=== PATIENT | male | born 1995 | race Caucasian/White ===

== ENCOUNTER 2018-08-22 14:17 | Emergency (ER) | payer MEDICAID ==
[2018-08-22 14:35] VITALS: BP 134/73; PULSE 76; TEMP 97.3; O2SAT 95
[2018-08-22] MEDS ORDERED: Albuterol-Ipratrop 3 mg / 0.5 (3 ml) UD IH STA (14:50)
--- NOTE | 2018-08-22 14:51 | C.PDOC ---
History Of Present Illness ASTHMA EXAC X SEV DAYS. PS W INCREASED WHEEZING X SEV MONTHS, USING [facility] "MULTIPLE TIMES" DAILY "SOME DAYS WORSE THAN OTHERS". RAN OUT OF [facility]. PS COMPLETED "1 MONTH OF STEROID" FINISHED 3 WKS AGO. NO FEVER, STARKS. EXAM NARD NONTOXIC LUNGS B/L EXP WHEEZE SPEAKING FULL SENTENCES NO RETRACTION CV RR REMAINDER NEG MDM ASTHMA EXAC. PT STRONGLY ADVISED NEED FOR INTERMEDIATE MAINTENANCE THERAPY, PMD EVAL POSSIBLE PHOTOCOPY OPERATOR. PT AND FUAD VOICE UNDERSTANDING Time Seen by Provider: 08/22/18 14:36 Chief Complaint (Nursing): Shortness Of Breath History Per: Patient History/Exam Limitations: no limitations Onset/Duration Of Symptoms: Days Current Symptoms Are (Timing): Still Present Severity: Moderate Past Medical History Reviewed: Historical Data, Nursing Documentation, Vital Signs Vital Signs: Last Vital Signs Temp 97.3 F L 08/22/18 14:20 Pulse 76 08/22/18 14:20 Resp 20 08/22/18 14:20 BP 134/73 08/22/18 14:20 Pulse Ox 95 08/22/18 14:20 Primary Care Provider: FAMILY PROVIDER,NO - Medical History PMH: Asthma Surgical History: No Surg Hx Family History: States: No Known Family Hx - Social History Hx Alcohol Use: Yes Hx Substance Use: No - Immunization History Hx Tetanus Toxoid Vaccination: No Hx Influenza Vaccination: No Hx Pneumococcal Vaccination: No Review Of Systems Except As Marked, All Systems Reviewed And Found Negative. Constitutional: Negative for: Fever, Chills Cardiovascular: Negative for: Chest Pain Respiratory: Positive for: Shortness of Breath, Wheezing Physical Exam - Physical Exam Appears: Non-toxic, Other (NARD) Skin: Normal Color, Warm, Dry Head: Atraumatic, Normacephalic Eye(s): bilateral: Normal Inspection Ear(s): Bilateral: Normal Neck: Supple Chest: Symmetrical Cardiovascular: Rhythm Regular Respiratory: No Rales, No Rhonchi, Wheezing (bilateral expiratory wheezing), Other (pt is speaking in full sentences, no retractions) Neurological/Psych: Oriented x3, Normal Speech ED Course And Treatment O2 Sat by Pulse Oximetry: 95 (RA) Pulse Ox Interpretation: Normal Medical Decision Making Medical Decision Making: Plan: --Duoneb --Prednisone PO ASTHMA EXAC. PT STRONGLY ADVISED NEED FOR INTERMEDIATE MAINTENANCE THERAPY, PMD EVAL POSSIBLE PHOTOCOPY OPERATOR. PT AND FUAD VOICE UNDERSTANDING Disposition Counseled Patient/Family Regarding: Diagnosis, Need For Followup, Rx Given - Disposition Referrals: [facility] [Outside] [facility] [Outside] Disposition: HOME/ ROUTINE Disposition Time: 14:48 Condition: IMPROVED Additional Instructions: YOU ARE STRONGLY ADVISED TO FOLLOW UP WITH YOUR PMD AND/OR PHOTOCOPY OPERATOR FOR MANAGEMENT OF YOUR ASTHMA. CONTINUE ALLERGY MEDICATIONS DIRECTED Prescriptions: Albuterol 0.083% [Albuterol Sulfate 3 Ml] 3 ml IH PRN PRN #30 neb PRN Reason: Shortness Of Breath Albuterol HFA [Ventolin HFA 90 mcg/actuation (8 g)] 0.09 mg IH PRN PRN #1 inhaler PRN Reason: Shortness Of Breath Fluticasone/Salmeterol 250/50 [Advair Diskus] 1 puff IH Q12 #1 inh predniSONE [Prednisone] 60 mg PO DAILY #12 tab Instructions: Asthma, Adult (DC) Forms: Accompanied To ED By:, [employer] ([place]ian), Work Excuse - Clinical Impression Clinical Impression: Asthma exacerbation - Scribe Statement The provider has reviewed the documentation as recorded by the Ubaldo Lao Provider Attestation: All medical record entries made by the Lorraineibe were at my direction and personally dictated by me. I have reviewed the chart and agree that the record accurately reflects my personal performance of the history, physical exam, m edical decision making, and the department course for this patient. I have also personally directed, reviewed, and agree with the discharge instructions and disposition.
[2018-08-22] MEDS ORDERED: Albuterol-Ipratrop 3 mg / 0.5 (3 ml) UD ONE (15:13)
[2018-08-22 15:27] VITALS: RESP 18
== END 2018-08-22 15:32 | disposition home or self-care (01) ==
LOC: C.ER 14:17
DX: J45.901 Unspecified asthma with (acute) exacerbation (principal)